=== PATIENT | female | born 1995 | race Caucasian/White ===

== ENCOUNTER 2024-05-04 11:23 | Day surgery (SDC) | payer OTHER ==
[2024-05-04] MEDS ORDERED: hydrALAZINE 20 MG/ML VIAL SLOW IVP PRN (12:52)
== END 2024-05-04 13:07 | disposition home or self-care (01) ==
LOC: CSHLD/OP 11:23
PROVIDERS: ATTEND Obstetrics & Gynecology
DX: O99.891 Other specified diseases and conditions complicating pregnancy (principal); R10.2 Pelvic and perineal pain; E61.1 Iron deficiency; O99.283 Endocrine, nutritional and metabolic diseases complicating pregnancy, third trimester; A59.9 Trichomoniasis, unspecified; F90.9 Attention-deficit hyperactivity disorder, unspecified type; F31.9 Bipolar disorder, unspecified; O99.213 Obesity complicating pregnancy, third trimester; O98.313 Other infections with a predominantly sexual mode of transmission complicating pregnancy, third trimester; A63.0 Anogenital (venereal) warts; O99.323 Drug use complicating pregnancy, third trimester; F12.10 Cannabis abuse, uncomplicated; F14.10 Cocaine abuse, uncomplicated; O99.333 Smoking (tobacco) complicating pregnancy, third trimester; Z3A.34 34 weeks gestation of pregnancy; Z98.890 Other specified postprocedural states; Z79.82 Long term (current) use of aspirin; Z79.899 Other long term (current) drug therapy; Z87.891 Personal history of nicotine dependence
CPT/HCPCS: 99283

== ENCOUNTER 2024-06-05 19:49 | Inpatient (IN) | payer OTHER ==
[~2024-06-05 19:49] MED LIST: Bupivacaine/Epinephrine 0.25% 30 ML VIAL ONE; Lidocaine 2% MPF 10 ML AMP (For Epidural Use) ONE
[2024-06-05 20:24] VITALS: BMI 42.0
[2024-06-05] MEDS ORDERED: hydrALAZINE 20 MG/ML VIAL SLOW IVP PRN (21:38)
[2024-06-05] MEDS ORDERED: Lidocaine 1% (PF) 30 ML VIAL SC PRN (21:38)
[2024-06-05] MEDS ORDERED: Ondansetron PF 4 MG/2 ML Vial IVP PRN (21:38)
[2024-06-05] MEDS ORDERED: Promethazine HCl 25 MG/ML VIAL IM PRN (21:38)
[2024-06-05] MEDS ORDERED: Misoprostol 200 MCG TAB PR PRN (21:41)
[2024-06-05] MEDS ORDERED: Ibuprofen 800 MG TAB PO PRN (21:41)
[2024-06-05] MEDS ORDERED: Tranexamic Acid 1,000 MG/10 ML VIAL IVP PRN (21:41)
[2024-06-05] MEDS ORDERED: Diphenoxylate HCl/Atropine Tablet PO PRN ×2 (21:41)
[2024-06-05] MEDS ORDERED: Carboprost 250 MCG/ML AMP IM PRN (21:41)
[2024-06-05] MEDS ORDERED: Methylergonovine 0.2 MG/ML VIAL IM PRN (21:41)
[2024-06-05] MEDS ORDERED: Docusate 100 MG CAP PO PRN (21:41)
[2024-06-05] MEDS ORDERED: Oxytocin 30 units/NS 500 ML 500 ML IV SCH (21:45)
[2024-06-05] MEDS: Acetaminophen 500 MG TAB PO PRN (21:57)
[2024-06-05] MEDS: Misoprostol 100 MCG TAB VAG SCH (21:58)
[2024-06-05 22:10] LABS: Hematocrit 32.2 % (34.9-44.5); Hemoglobin 10.2 g/dL (12.0-15.5); Mean Corpuscular HGB CONC 31.7 g/dL (32.0-36.0); Mean Corpuscular Hemoglobin 24.7 pg (27.0-33.0); Mean Platelet Volume 10.8 fL (7.4-10.4); Platelet Count 233 10x3/uL (150-450); RBC Distribution Width 13.8 % (11.5-14.5); Red Blood Cell (RBC) Count 4.13 10x6/uL (3.90-5.03); White Blood Cell (WBC) Count 7.5 10x3/uL (3.5-10.5)
[2024-06-05 22:41] LABS: Hep B Surf Ag - L&D Non-Reactive S/CO (NonReactive); Syphilis Antibody Nonreactive (Nonreactive); Syphilis Antibody Index 0.04 S/CO (<1.00 Non-Reactive)
[2024-06-05] MEDS: Calcium Carbonate 500 MG ChewTAB PO PRN (22:51)
[2024-06-06] MEDS: Pantoprazole DR 40 MG TAB PO SCH (00:04)
[2024-06-06] MEDS: fentaNYL 50 mcg/mL 1 mL Vial SLOW IVP PRN (01:57)
[2024-06-06] MEDS ORDERED: ePHEDrine Sulfate 50 MG/10 ML VIAL SLOW IVP PRN (10:42)
[2024-06-06] MEDS ORDERED: Promethazine HCl 25 MG/ML VIAL IM PRN (10:42)
[2024-06-06] MEDS ORDERED: diphenhydrAMINE 50 MG/ML VIAL IVP PRN (10:42)
[2024-06-06] MEDS ORDERED: Ondansetron PF 4 MG/2 ML Vial IVP PRN (10:42)
[2024-06-06] MEDS ORDERED: Lactated Ringer's 500 ML IV PRN (10:42)
[2024-06-06] MEDS ORDERED: Naloxone HCl 0.4 mg/ml Vial IVP PRN ×2 (10:42)
[2024-06-06] MEDS: fentaNYL/Ropivacaine Epidural 100 ML ONE (10:43)
[2024-06-06] MEDS ORDERED: Communication Order-Pharmacy FS SCH (10:45)
[2024-06-06] MEDS: Oxytocin 30 units/NS 500 ML 500 ML IV SCH (14:02)
[2024-06-06] MEDS: Moisturizing Cream (Eucerin) 113 GM JAR TOP PRN (19:02)
[2024-06-06] MEDS: fentaNYL 2 mcg/Ropivacaine 0.2% Epidural 100 ML CADD EPIDURAL SCH (21:41)
[2024-06-07 08:28] LABS: Hematocrit 32.9 % (34.9-44.5); Hemoglobin 10.5 g/dL (12.0-15.5); Mean Corpuscular HGB CONC 31.9 g/dL (32.0-36.0); Mean Corpuscular Hemoglobin 25.3 pg (27.0-33.0); Mean Corpuscular Volume 79.3 fL (81.6-98.3); Mean Platelet Volume 10.5 fL (7.4-10.4); Platelet Count 186 10x3/uL (150-450); RBC Distribution Width 14.2 % (11.5-14.5); Red Blood Cell (RBC) Count 4.15 10x6/uL (3.90-5.03); White Blood Cell (WBC) Count 6.4 10x3/uL (3.5-10.5)
[2024-06-07] MEDS: Ampicillin 2 GM VIAL ONE (13:20)
[2024-06-07] MEDS: Acetaminophen 325 MG TAB PO PRN (13:35)
[2024-06-07] MEDS ORDERED: Bicitra 30 ML UDCUP PO PRN (14:02)
[2024-06-07] MEDS ORDERED: Famotidine/PF 20 mg/2ml Vial SLOW IVP PRN (14:02)
[2024-06-07] MEDS ORDERED: Clindamycin/D5W 900 MG in Premix 1 BAG IVPB SCH (14:15)
[2024-06-07] MEDS ORDERED: Promethazine HCl 25 MG/ML VIAL IM PRN (14:22)
[2024-06-07] MEDS ORDERED: Ondansetron PF 4 MG/2 ML Vial IVP PRN ×3 (14:22→15:55)
[2024-06-07] MEDS ORDERED: fentaNYL 50 mcg/mL 1 mL Vial SLOW IVP PRN (14:22)
[2024-06-07] MEDS ORDERED: Naloxone HCl 0.4 mg/ml Vial IV PRN (14:22)
[2024-06-07] MEDS ORDERED: Moisturizing Cream (Eucerin) 113 GM JAR TOP PRN (14:22)
[2024-06-07] MEDS ORDERED: Naloxone HCl 0.4 mg/ml Vial IVP PRN ×2 (14:22)
[2024-06-07] MEDS ORDERED: Ketorolac Tromethamine 30 MG (1 mL) VIAL IVP SCH (14:30)
[2024-06-07] MEDS ORDERED: Communication Order-Pharmacy FS SCH (14:30)
[2024-06-07 15:25] LABS: Analyzer IN Cardio CS NICU; RapidComm Collect By OR NURSE
[2024-06-07] MEDS ORDERED: Methylergonovine 0.2 MG/ML VIAL IM PRN (15:55)
[2024-06-07] MEDS ORDERED: Bisacodyl 10 MG SUPP PR PRN (15:55)
[2024-06-07] MEDS ORDERED: hydrALAZINE 20 MG/ML VIAL SLOW IVP PRN (15:55)
[2024-06-07] MEDS ORDERED: Misoprostol 200 MCG TAB PR PRN (15:55)
[2024-06-07] MEDS ORDERED: Simethicone Chewable 80 MG TAB PO PRN (15:55)
[2024-06-07] MEDS ORDERED: Lanolin Ointment 7 GM TUBE TOP PRN (15:55)
[2024-06-07] MEDS ORDERED: Benzocaine-Menthol 82.5 ML CAN TOP PRN (16:00)
[2024-06-07] MEDS ORDERED: Oxytocin 30 units/NS 500 ML 500 ML IV SCH (16:00)
[2024-06-07] MEDS: Ketorolac Tromethamine 30 MG (1 mL) VIAL IVP PRN (18:08)
[2024-06-07] MEDS: Meperidine HCl/PF 25 MG (1 mL) VIAL SLOW IVP PRN (18:09)
[2024-06-07] MEDS: Sodium Chloride 0.9% 100 ML ONE (20:48)
[2024-06-07] MEDS: fentaNYL 50 mcg/mL 1 mL Vial ONE ×3 (20:48→20:51)
[2024-06-07] MEDS: Ondansetron PF 4 MG/2 ML Vial ONE (20:49)
[2024-06-07] MEDS: Ampicillin 2 GM in Sodium Chloride 0.9% 100 ML IVPB SCH (20:49)
[2024-06-07] MEDS: Oxytocin 10 UNITS/ML VIAL ONE ×2 (20:49→20:51)
[2024-06-07] MEDS: Dexamethasone 10 MG/ML VIAL ONE (20:49)
[2024-06-07] MEDS: Lidocaine 2% MPF 10 ML AMP (For Epidural Use) ONE (20:50)
[2024-06-07] MEDS: Morphine PF 10 MG/10 ML VIAL ONE (20:50)
[2024-06-07] MEDS: Dexmedetomidine 200 MCG/2 ML VIAL ONE (20:50)
[2024-06-07] MEDS: Methylergonovine 0.2 MG/ML VIAL ONE (20:51)
[2024-06-07] MEDS: KETAMINE 100 MG/ML (5ML VIAL) ONE (20:51)
[2024-06-07] MEDS: Carboprost 250 MCG/ML AMP ONE (20:51)
[2024-06-07] MEDS: Tranexamic Acid 1,000 MG/10 ML VIAL ONE (20:51)
[2024-06-07] MEDS: Midazolam HCl 2 mg/2 ml Vial ONE (20:51)
[2024-06-07 20:59] LABS: #Basophils 0.01 10x3/uL (0.0-0.2); %Basophils 0.1 % (0.0-2.0); %Lymphocytes 2.5 % (18.0-47.0); %Monocytes 4.4 % (0.0-10.0); %Neutrophils 92.5 % (40.0-75.0); Hematocrit 35.5 % (34.9-44.5); Mean Corpuscular Hemoglobin 24.7 pg (27.0-33.0); Mean Corpuscular Volume 79.8 fL (81.6-98.3); Mean Platelet Volume 10.5 fL (7.4-10.4); Platelet Count 212 10x3/uL (150-450); Red Blood Cell (RBC) Count 4.45 10x6/uL (3.90-5.03); White Blood Cell (WBC) Count 18.4 10x3/uL (3.5-10.5)
[2024-06-07] MEDS: Ferrous Sulfate 325 MG TAB PO SCH (21:03)
[2024-06-07] MEDS: Clindamycin/D5W 900 MG in Premix 1 BAG IVPB SCH (21:07)
[2024-06-07 21:13] LABS: PTT 29.6 sec (22.0-33.0); Prothrombin Time 10.4 sec (9.5-12.1)
[2024-06-07] MEDS: diphenhydrAMINE 50 MG/ML VIAL IVP PRN (21:28)
[2024-06-08] MEDS ORDERED: HYDROcodone/Acetaminophen 5/325 mg Tablet PO PRN (02:30)
[2024-06-08 05:30] LABS: Hematocrit 28.8 % (34.9-44.5); Hemoglobin 9.1 g/dL (12.0-15.5); Mean Corpuscular HGB CONC 31.6 g/dL (32.0-36.0); Mean Corpuscular Hemoglobin 25.4 pg (27.0-33.0); Mean Corpuscular Volume 80.4 fL (81.6-98.3); Mean Platelet Volume 10.7 fL (7.4-10.4); Platelet Count 181 10x3/uL (150-450); RBC Distribution Width 14.1 % (11.5-14.5); Red Blood Cell (RBC) Count 3.58 10x6/uL (3.90-5.03); White Blood Cell (WBC) Count 14.3 10x3/uL (3.5-10.5)
[2024-06-08] MEDS: HYDROcodone/Acetaminophen 5/325 mg Tablet PO PRN (08:07)
[2024-06-08] MEDS: Ibuprofen 800 MG TAB PO SCH (20:24)
[2024-06-09] MEDS: Boostrix 0.5 ML (Tdap) VIAL (>/=7 yrs of age) IM ONE (07:37)
[2024-06-09] MEDS: Prenatal Vitamin 1 TAB PO SCH (08:48)
[2024-06-09] MEDS: Senokot S 8.6-50 MG TAB PO SCH (08:51)
[2024-06-09] MEDS: Acetaminophen 325 MG TAB PO SCH (15:44)
[2024-06-09] MEDS: HYDROcodone/Acetaminophen 5/325 mg Tablet PO PRN (16:09)
[2024-06-09] MEDS: Ibuprofen 200 MG TAB PO SCH (17:21)
[2024-06-09 20:11] VITALS: TEMP 98
[2024-06-10 07:42] VITALS: BP 124/65
[2024-06-10] MEDS: Lidocaine 4% Patch TD SCH (10:23)
[2024-06-10] MEDS: Enoxaparin 40 MG (0.4 mL) SYRINGE SC SCH (12:14)
[2024-06-10] MEDS: HYDROcodone/Acetaminophen 5/325 mg Tablet PO PRN (13:16)
[2024-06-10] MEDS ORDERED: Enoxaparin 40 MG (0.4 mL) SYRINGE SC SCH (21:00)
[2024-06-10] MEDS ORDERED: LIDOCAINE Patch Removal TOP SCH (22:00)
== END 2024-06-10 14:20 | disposition home or self-care (01) | DRG 788 ==
LOC: CSHLD 19:49 → CSHPP 06-07 20:27
PROVIDERS: ADMIT Emergency Medicine; ATTEND Emergency Medicine
PROC: 0U7G7ZZ Dilation of Vagina, Via Natural or Artificial Opening (ICD-10-PCS; 2024-06-04)
PROC: 10D00Z1 Extraction of Products of Conception, Low, Open Approach (ICD-10-PCS; principal; 2024-06-05)
DX: O99.02 Anemia complicating childbirth (principal); D50.9 Iron deficiency anemia, unspecified; Z3A.39 39 weeks gestation of pregnancy; Z37.0 Single live birth; O99.214 Obesity complicating childbirth; E66.01 Morbid (severe) obesity due to excess calories; F31.9 Bipolar disorder, unspecified; O99.344 Other mental disorders complicating childbirth; O34.13 Maternal care for benign tumor of corpus uteri, third trimester; O62.2 Other uterine inertia
CPT/HCPCS: 36415; 36430; 51702; 82805; 85027; 85610; 85730; 86780; 86850; 86900; 86901; 87340; J0290; J1100; J1200; J1580; J1650; J1885; J2175; J2210; J2250; J2274; J2405; J2590; J3010; J3490